=== PATIENT | female | born 1990 | race Caucasian/White ===

== ENCOUNTER 2020-07-02 19:02 | Emergency (ER) | payer BC, MEDICAID ==
[~2020-07-02] VITALS: Ht 157.5 cm; Wt 47.7 kg
[~2020-07-02 19:02] MED LIST: NO HOME MEDS
[2020-07-02 19:09] VITALS: BP 130/78
[2020-07-02 19:44] LABS: CLARITY,URINE CLEAR (Clear); COLOR,URINE ORANGE (Yellow); GLUCOSE, URINE 500 mg/dl (Neg); KETONES,URINE 15 mg/dl (Neg); LEUKOCYTE ESTERASE ,URINE TRACE (Neg); NITRITES, URINE POSITIVE (Neg); OCCULT BLOOD,URINE MODERATE (Neg); PROTEIN,URINE 100 mg/dl (Neg); URINE HCG NEGATIVE (NEG); UROBILINOGEN,URINE >=8.0 E.U/dL (0.2-1.0)
[2020-07-02 19:45] LABS: UA COLLECTION TYPE CLN CATCH MIDSTREAM
[2020-07-02 19:49] LABS: BACTERIA,URINE 3+ /HPF (Neg); SQUAMOUS EPITHELIAL CELL,UR MODERATE /LPF (FEW); WBC,URINE 0-4 /HPF (0-4)
[2020-07-02] MEDS ORDERED: PHEN-716 PO (20:29)
[2020-07-02] MEDS ORDERED: CEPH500C5 PO (20:29)
== END 2020-07-02 20:41 | disposition home or self-care (01) ==
LOC: ER 19:02
DX: N39.0 Urinary tract infection, site not specified (principal); R42 Dizziness and giddiness; R53.83 Other fatigue; R11.0 Nausea; Z88.1 Allergy status to other antibiotic agents; Z79.899 Other long term (current) drug therapy
CPT/HCPCS: 81001; 81025; 82948; 87088; 99283

== ENCOUNTER 2020-09-21 23:14 | Emergency (ER) | payer BC, MEDICAID ==
[~2020-09-21] VITALS: Ht 160 cm; Wt 50.0 kg
[~2020-09-21 23:14] MED LIST changes: +PHEN-716 PO
[2020-09-21 23:43] VITALS: BP 145/101
== END 2020-09-22 01:00 | disposition home or self-care (01) ==
LOC: ER 23:14
DX: U07.1 COVID-19 (principal); G43.909 Migraine, unspecified, not intractable, without status migrainosus; R09.89 Other specified symptoms and signs involving the circulatory and respiratory systems; Z90.89 Acquired absence of other organs; Z79.899 Other long term (current) drug therapy; Z88.1 Allergy status to other antibiotic agents
CPT/HCPCS: 87635; 99283; C9803; 99281